=== PATIENT | female | born 1985 | race Caucasian/White ===

== ENCOUNTER → 2018-11-24 | Outpatient (CLI) | payer OTHER ==
--- NOTE | 2018-11-25 08:55 | MR ---
EXAMINATION TYPE: MR knee LT wo con DATE OF EXAM: 11/24/2018 COMPARISON: None HISTORY: Left knee pain TECHNIQUE: Multiplanar, multisequence imaging of the left knee is performed without IV contrast. FINDINGS: Patient is status post anterior cruciate ligament repair MEDIAL MENISCUS: Posterior horn of the medial meniscus shows some linear increased signal which exten ds to the undersurface compatible with tear LATERAL MENISCUS: Anterior and posterior horns are intact without tear. CRUCIATE LIGAMENTS: The fibers of the anterior cruciate ligament repair are not well-defined, there i s some increased signal and some suggested redundancy which is suggestive of partial tear or degenera tion COLLATERAL LIGAMENTS: The medial collateral ligament and lateral collateral ligament complex are inta ct and unremarkable. EXTENSOR MECHANISM: Visualized quadriceps and patellar tendons are intact. EFFUSION: There is a small joint effusion. POPLITEAL CYST: No popliteal/jose cyst. 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 IMPRESSION: Abnormal findings in the distribution of the anterior cruciate ligament repair as described, there ma y be partial tear or degenerative signal. Osteoarthritis. Possible undersurface tear medial meniscus.
== END | disposition home or self-care (01) ==
LOC: RADMRIMAIN 19:41
PROVIDERS: ATTEND Family Medicine
DX: M17.12 Unilateral primary osteoarthritis, left knee (principal); Z98.890 Other specified postprocedural states

== ENCOUNTER 2020-12-17 16:03 | Outpatient (CLI) | payer OTHER ==
[2020-12-17 17:45] VITALS: BP 136/76; PULSE 72; RESP 16; TEMP 98.2
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
== END 2020-12-17 17:35 | disposition home or self-care (01) ==
LOC: FBPOP 16:03
PROVIDERS: ATTEND Obstetrics & Gynecology Obstetrics
DX: O99.352 Diseases of the nervous system complicating pregnancy, second trimester (principal); G89.11 Acute pain due to trauma; Z3A.20 20 weeks gestation of pregnancy; Z88.2 Allergy status to sulfonamides
CPT/HCPCS: 99213

== ENCOUNTER 2021-05-14 06:07 | Inpatient (IN) | payer OTHER ==
[~2021-05-14 06:07] MED LIST: ROPIVACAINE 5MG/ML 20ML VIAL ONE; SODIUM CHLORIDE 0.9% 100 ML BAG ONE; fentaNYL (PF) 50 MCG/ML 5 ML AMP ONE
[2021-05-14] MEDS ORDERED: TERBUTALINE 1 MG/ML VIAL SQ PRN (06:31)
[2021-05-14] MEDS ORDERED: LIDOCAINE 0.5% (PF) 5 MG/ML (50 ML SDV) SQ PRN (06:31)
[2021-05-14] MEDS ORDERED: OXYTOCIN 10 UNIT/ML 1 ML VIAL IM PRN (06:31)
[2021-05-14] MEDS ORDERED: CARBOPROST TROMETHAMINE 250 MCG/ML 1 ML AMP IM PRN (06:31)
[2021-05-14] MEDS ORDERED: METHYLERGONOVINE 0.2 MG/ML 1 ML AMP IM PRN (06:31)
[2021-05-14] MEDS ORDERED: OXYTOCIN 30 UNITS/500 ML NS 30 UNIT in SALINE 1 500ML.BAG IV SCH ×2 (06:45→19:30)
[2021-05-14 07:00] LABS: Basophils % (A) 0 %; Eosinophils # (A) 0.1 k/uL (0-0.7); Eosinophils % (A) 1 %; HCT 31.2 % (34.0-46.0); HGB 10.8 gm/dL (11.4-16.0); Lymphocytes # (A) 1.7 k/uL (1.0-4.8); Lymphocytes % (A) 20 %; MCH 35.1 pg (25.0-35.0); MCHC 34.5 g/dL (31.0-37.0); MCV 101.7 fL (80.0-100.0); Macrocytosis Slight; Mean Platelet Volume 9.8; Monocytes # (A) 0.4 k/uL (0-1.0); Monocytes % (A) 4 %; Neutrophils # (A) 6.4 k/uL (1.3-7.7); Neutrophils % (A) 73 %; Platelet Count 198 k/uL (150-450); RBC 3.06 m/uL (3.80-5.40); RDW 12.6 % (11.5-15.5); WBC 8.8 k/uL (3.8-10.6)
[2021-05-14] MEDS: LACTATED RINGERS 1,000 ML IV SCH ×3 (07:01→23:13)
[2021-05-14] MEDS ORDERED: BUTORPHANOL 1 MG/ML 1 ML VIAL IV PRN (16:55)
[2021-05-14] MEDS ORDERED: SIMETHICONE 80 MG CHEWABLE PO PRN (19:19)
[2021-05-14] MEDS ORDERED: HYDROCORTISONE 2.5% RECTAL CREAM 30 GM TUBE RECTAL PRN (19:19)
[2021-05-14] MEDS ORDERED: diphenhydrAMINE 50 MG/ML 1 ML VIAL IVP PRN ×2 (19:19)
[2021-05-14] MEDS ORDERED: ACETAMINOPHEN TAB 325 MG TAB PO PRN (19:19)
[2021-05-14] MEDS ORDERED: LANOLIN CREAM 5 GM TUBE TOPICAL PRN (19:19)
[2021-05-14] MEDS ORDERED: ZOLPIDEM 5 MG TAB PO PRN (19:19)
[2021-05-14] MEDS ORDERED: diphenhydrAMINE 25 MG CAP PO PRN (19:19)
[2021-05-14] MEDS ORDERED: diphenhydrAMINE 50 MG CAP PO PRN (19:19)
[2021-05-14] MEDS ORDERED: BENZOCAINE/MENTHOL SPRAY 1 GM/SPRAY AEROSOL TOPICAL PRN (19:19)
--- NOTE | 2021-05-14 19:47 | P.PROBDLV ---
Vaginal Delivery Note - . Vaginal Delivery Note: This is a at 41 1/7 weeks that presents for induction of labor secondary to postdates. Patient is admitted to labor and delivery and Pitocin induction of labor is begun per hospital protocol. Patient is offered analgesia including Stadol and epidural, she will decide. Patient underwent amniotomy and clear fluid was obtained. Patient progressed through labor eventually becoming uncomfortable and did request epidural placement. Epidural was placed without difficulty by the anesthesia Patient progressed to complete and had a normal spontaneous vaginal delivery of a viable female infant at 1851, weight pending, Apgars of 8 and 9 at one and 5 minutes respectfully. Meconium-stained fluid was noted behind the infant upon delivery, meconium staining of the umbilical cord is apparent. After two-minute delayed the umbilical cord was doubly clamped and cut and the placenta was delivered spontaneously intact with a three-vessel cord being noted. Inspection the patient's vaginal vault bilateral labial lacerations were appreciated addition to a second degree midline laceration. These lacerations were per repaired in the usual fashion, labial with 3-0 chromic. The second degree midline was repaired with 3-0 Rapide. After repair was complete hemostasis was appreciated. The uterus noted be firm below the umbilicus. Lochia is noted be minimal. All counts were noted to be correct 2 within the procedure. Patient and infant tolerated delivery well and are resting fairly.
--- NOTE | 2021-05-14 19:48 | P.HPOB ---
History of Present Illness H&P Date: 05/14/21 Chief Complaint: IUP at 41 and 0, postdates 36-year-old at 41 0/7 weeks EDC 05/06 that presents for induction of labor secondary to postdates. she has been receiving routine care with myself since the first trimester. care had been essentially uncompensated. she notes good FM, no ctx. on blood work she has a bloodtype O positive, rubella immune, HBSag negative, HIV neg , RPR NR. Review of Systems Constitutional: Denies chills, Denies fatigue, Denies fever Ears, nose, mouth and throat: Denies headache Cardiovascular: Reports leg edema Respiratory: Denies dyspnea Gastrointestinal: Denies constipation, Denies diarrhea, Denies nausea, Denies vomiting Genitourinary: Reports Past Medical History Past Medical History: No Reported History History of Any Multi-Drug Resistant Organisms: MRSA Date of last positivie culture/infection: 2010 MDRO Source:: [place] Past Surgical History: Back Surgery, Orthopedic Surgery Additional Past Surgical History / Comment(s): ACL reconstruction- 2014; back surgery-2009; wisdom teeth-2003 Past Anesthesia/Blood Transfusion Reactions: No Reported Reaction Past Psychological History: No Psychological Hx Reported Smoking Status: Never smoker Past Alcohol Use History: None Reported Past Drug Use History: None Reported - Past Family History Father Family Medical History: Hypertension Additional Family Medical History / Comment(s): PAD, au syndrome Medications and Allergies Home Medications Medication Instructions Recorded Confirmed Type Aspirin 81 mg PO DAILY 05/14/21 05/14/21 History Pnv No.95/Ferrous Fum/Folic AC 1 tab PO DAILY MDD 1 05/14/21 05/14/21 History [ Multivitamin Tablet] Allergies Allergy/AdvReac Type Severity Reaction Status Date / Time Sulfa (Sulfonamide Allergy Severe Anaphylaxis Verified 12/17/20 16:18 Antibiotics) Exam Osteopathic Statement: *. No significant issues noted on an osteopathic structural exam other than those noted in the History and Physical/Consult. Vital Signs Temp Pulse Resp BP 05/14/21 07:11 96.8 F L 64 16 113/72 Intake and Output 05/14/21 05/14/21 05/14/21 06:59 14:59 22:59 Intake Total 1000 Balance 1000 Intake: IV 1000 Other: Weight 117.934 kg 117.934 kg Results Result Diagrams: 05/14/21 06:15 Abnormal Lab Results - Last 24 Hours (Table) 05/14/21 Range/Units 06:15 RBC 3.06 L (3.80-5.40) m/uL Hgb 10.8 L (11.4-16.0) gm/dL Hct 31.2 L (34.0-46.0) % MCV 101.7 H (80.0-100.0) fL MCH 35.1 H (25.0-35.0) pg Assessment and Plan (1) Post-dates Current Visit: Yes Status: Acute Code(s): O48.0 - POST-TERM SNOMED Code(s): 97312922 Plan: this at 41 1/7 that presents for induction of labor. Patient is admitted and pitocin is started per hospital protocol. she is offered epidural and stadol for analgesia during labor. she will consider. anticipate vaginal delivery later this afternoon.
[2021-05-14] MEDS: SENNOSIDES-DOCUSATE SODIUM 1 EACH TAB PO SCH (22:41)
[2021-05-14] MEDS: IBUPROFEN 600 MG TAB PO PRN (23:13)
[2021-05-15] MEDS: IBUPROFEN 600 MG TAB PO PRN ×4 (03:54→23:28)
[2021-05-15] MEDS: SENNOSIDES-DOCUSATE SODIUM 1 EACH TAB PO SCH ×2 (07:58→19:39)
--- NOTE | 2021-05-15 08:49 | P.PNOBGVD ---
Subjective - Subjective Principal diagnosis: day 1 status post normal spontaneous vaginal delivery Interval history: Patient is doing well. She is ambulating and voiding without difficulty. She is breast-feeding with some difficulty. She denies pain. She is tolerating a regular diet without nausea or vomiting. Her lochia is moderate. Patient reports: Reports appetite normal, Reports voiding normally, Reports pain well controlled, Reports ambulating normally [place]: doing well, nursing well Objective - Latest Vital Signs Latest vital signs: Vital Signs Temp Pulse Resp BP 05/15/21 04:00 98.0 F 68 18 140/70 05/15/21 00:00 98.1 F 65 18 140/63 05/14/21 21:12 97.8 F 66 16 132/69 05/14/21 20:42 66 132/69 05/14/21 20:12 71 16 127/58 05/14/21 19:57 16 05/14/21 19:42 78 16 125/70 05/14/21 19:27 81 16 123/68 05/14/21 19:12 97.5 F L 75 16 125/58 Intake and Output 05/14/21 05/15/21 05/15/21 22:59 06:59 14:59 Other: # Voids 2 - Exam Extremities: Present: normal, edema Abdomen: Present: normal appearance Uterus: Present: normal, firm Assessment and Plan (1) Post-dates Current Visit: Yes Status: Acute Code(s): O48.0 - POST-TERM SNOMED Code(s): 66175900 (2) Status post vaginal delivery Current Visit: Yes Status: Acute Code(s): NUX9459 - SNOMED Code(s): 472966677 (3) Obstetric labial laceration, delivered, current hospitalization Current Visit: Yes Status: Acute Code(s): O70.0 - FIRST DEGREE PERINEAL LACERATION DURING DELIVERY SNOMED Code(s): 106406682 (4) Second degree perineal laceration Current Visit: Yes Status: Acute Code(s): O70.1 - SECOND DEGREE PERINEAL LACERATION DURING DELIVERY SNOMED Code(s): 8442065 Plan: Patient is doing well . We'll continue to work on breast-feeding today. Continue routine care. Interceed discharge home tomorrow.
[2021-05-15 08:56] VITALS: RESP 16
[2021-05-15] MEDS ORDERED: PRENATAL VIT-IRON-FOLIC ACID 1 EACH CAP PO SCH (09:00)
[2021-05-15] MEDS ORDERED: INFLUENZA VACC (6 MOS-64 YRS) 60 MCG/0.5 ML SYRINGE IM ONE (15:11)
[2021-05-15 23:52] VITALS: PULSE 69
[2021-05-16] MEDS: IBUPROFEN 600 MG TAB PO PRN ×2 (07:34→15:10)
[2021-05-16] MEDS: SENNOSIDES-DOCUSATE SODIUM 1 EACH TAB PO SCH (07:35)
[2021-05-16 08:21] VITALS: BP 125/82; TEMP 97.9
--- NOTE | 2021-05-16 09:24 | P.DS ---
Providers Date of admission: 05/14/21 06:07 Expected date of discharge: 05/16/21 Attending physician: Berta Sanchez Primary care physician: Stated None - Discharge Diagnosis(es) (1) Post-dates Current Visit: Yes Status: Acute (2) Status post vaginal delivery Current Visit: Yes Status: Acute (3) Obstetric labial laceration, delivered, current hospitalization Current Visit: Yes Status: Acute (4) Second degree perineal laceration Current Visit: Yes Status: Acute Hospital Course: This is a 36-year-old 1 now para 1 that presented to labor and delivery at 41 and one sevenths weeks for induction of labor secondary to postdates. Patient was admitted to labor and delivery and Pitocin induction of labor was begun per hospital protocol. Patient had been receiving routine care of note which has been essentially uncomplicated. Patient underwent amniotomy and clear fluid was obtained. Patient did progress through labor eventually becoming uncomfortable and requesting epidural placement. Epidural was placed without difficulty by the anesthesia department. Patient quickly pressed progressed to complete began pushing and had a normal spontaneous vaginal delivery of viable female at 1851, Apgars of 8 and 9. Meconium-stained fluid was noted behind the infant upon delivery. Patient did sustain bilateral labial lacerations was were repaired in the usual fashion with 3-0 chromic, a second-degree vaginal laceration which was repaired with 3-0 Rapide. Patient's course has been uneventful. On this day #2 she is ambulating and voiding without difficulty. She is tolerating a regular diet without nausea or vomiting. And she would like discharge home. Patient Condition at Discharge: Good Plan - Discharge Summary New Discharge Prescriptions: No Action Pnv No.95/Ferrous Fum/Folic AC [ Multivitamin Tablet] 1 tab PO DAILY MDD 1 Aspirin 81 mg PO DAILY Discharge Medication List Aspirin 81 mg PO DAILY 05/14/21 [History] Pnv No.95/Ferrous Fum/Folic AC [ Multivitamin Tablet] 1 tab PO DAILY MDD 1 05/14/21 [History] Follow up Appointment(s)/Referral(s): Berta Sanchez DO [Doctor of Osteopathic Medicine] - 4 Weeks Patient Instructions/Handouts: Vaginal Delivery (GEN), Vaginal Delivery (DC) Discharge Disposition: HOME SELF-CARE
== END 2021-05-16 15:45 | disposition home or self-care (01) | DRG 768 ==
LOC: 4FBP 06:07
PROVIDERS: ADMIT Obstetrics & Gynecology Obstetrics; ATTEND Obstetrics & Gynecology Obstetrics
PROC: 00H Central Nervous System and Cranial Nerves, Insertion (ICD-10-PCS; principal; 2021-05-14)
PROC: 0UQMXZZ Repair Vulva, External Approach (ICD-10-PCS; principal; 2021-05-14)
PROC: 10E0XZZ Delivery of Products of Conception, External Approach (ICD-10-PCS; principal; 2021-05-14)
PROC: 3E0R3NZ Introduction of Analgesics, Hypnotics, Sedatives into Spinal Canal, Percutaneous Approach (ICD-10-PCS; principal; 2021-05-14)
PROC: 0KQM0ZZ Repair Perineum Muscle, Open Approach (ICD-10-PCS; principal; 2021-05-14)
PROC: 10907ZC Drainage of Amniotic Fluid, Therapeutic from Products of Conception, Via Natural or Artificial Opening (ICD-10-PCS; principal; 2021-05-14)
PROC: 3E033VJ Introduction of Other Hormone into Peripheral Vein, Percutaneous Approach (ICD-10-PCS; 2021-05-14)
PROC: 3E02340 Introduction of Influenza Vaccine into Muscle, Percutaneous Approach (ICD-10-PCS; 2021-05-15)
DX: O48.0 Post-term pregnancy (principal); Z37.0 Single live birth; O70.1 Second degree perineal laceration during delivery; O70.0 First degree perineal laceration during delivery; O77.0 Labor and delivery complicated by meconium in amniotic fluid; Z3A.41 41 weeks gestation of pregnancy; Z79.82 Long term (current) use of aspirin; Z82.49 Family history of ischemic heart disease and other diseases of the circulatory system; Z84.81 Family history of carrier of genetic disease; Z88.2 Allergy status to sulfonamides; Z23 Encounter for immunization
CPT/HCPCS: 85025; 86850; 86900; 86901; 88307; 90471; 90686

== ENCOUNTER 2022-01-14 09:02 | Day surgery (SDC) | payer OTHER ==
[2022-01-10 12:51] VITALS: BMI 39.5
[~2022-01-14 09:02] MED LIST changes: +LACTATED RINGERS 1,000 ML IV SCH; +LIDOCAINE 1% (10MG/ML) FOR IV START INTRADERMA PRN; -ROPIVACAINE 5MG/ML 20ML VIAL ONE; -SODIUM CHLORIDE 0.9% 100 ML BAG ONE; -fentaNYL (PF) 50 MCG/ML 5 ML AMP ONE
[2022-01-14 09:34] VITALS: RESP 16; TEMP 97.3
[2022-01-14] MEDS ORDERED: ONDANSETRON 4 MG/2 ML VIAL ONE (09:52)
[2022-01-14] MEDS ORDERED: ONDANSETRON 4 MG/2 ML VIAL IVP ONE (09:54)
[2022-01-14] MEDS ORDERED: PROPOFOL 10 MG/ML 20 ML VIAL IV ONE (10:22)
[2022-01-14] MEDS ORDERED: LIDOCAINE 2% INJ 20 MG/ML (2 ML VIAL) ONE (10:22)
--- NOTE | 2022-01-14 10:49 | P.PCN ---
Date of Procedure: 01/14/22 Procedure(s) Performed: BRIEF HISTORY: Patient is a 36-year-old pleasant white female scheduled for an elective colonoscopy as a part of a for colorectal neoplasia. 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 Her father has colon polyps. Her paternal aunt has colon cancer at age 50 and had genetic testing done and was positive colon syndrome. Patient is asymptomatic. PROCEDURE PERFORMED: Colonoscopy. PREOPERATIVE DIAGNOSIS: Screening for colon cancer/SHEETS syndrome. IV sedation per Anesthesia. PROCEDURE: After informed consent was obtained, the patient, was brought into the endoscopy unit. IV sedation was administered by Anesthesia under continuous monitoring. Digital rectal examination was normal. Initially the Olympus CF-160 flexible video colonoscope was then inserted in the rectum, gradually advanced into the cecum without any difficulty. Careful examination was performed as the scope was gradually being withdrawn. Ileocecal valve and the appendiceal orifice were visualized and appeared normal. Prep was excellent. Mucosa of the cecum, ascending colon, transverse colon, descending colon, sigmoid colon, and rectum appeared normal. Retroflexion was performed in the rectum and no lesions were seen. The patient tolerated the procedure well. IMPRESSION: Normal-appearing colon from rectum to cecum with no evidence of colorectal neoplasia. RECOMMENDATIONS: Findings of this examination were discussed with the patient as well as a family. She was advised to have a repeat colonoscopy every one to 2 years and upper endoscopy every 3-5 years as a part of surveillance for personal history of Sheets syndrome.
[2022-01-14 11:12] VITALS: BP 110/64; PULSE 54
== END 2022-01-14 11:35 | disposition home or self-care (01) ==
LOC: ORWHC2ENDO 09:02
PROVIDERS: ATTEND Internal Medicine Gastroenterology
DX: Z12.11 Encounter for screening for malignant neoplasm of colon (principal); Z15.09 Genetic susceptibility to other malignant neoplasm; Z83.71 Family history of colonic polyps; Z80.0 Family history of malignant neoplasm of digestive organs; F32.A Depression, unspecified; Z79.899 Other long term (current) drug therapy; Z88.2 Allergy status to sulfonamides
CPT/HCPCS: 84703; J2405; J2704; J2001; G0121